=== PATIENT | male | born 1965 | race Caucasian/White ===

== ENCOUNTER 2020-08-19 17:02 | Emergency (ER) | payer MEDICAID, MEDICARE, OTHER ==
[2020-08-19 17:17] LABS: #Basophils 0.2 thou/uL (0.0-0.2); #Eosinphils 0.2 thou/uL (0.0-0.7); #Lymphocytes 1.3 thou/uL (1.20-3.40); #Monocytes 0.8 thou/uL (0.11-0.59); #Neutrophils 13.8 thou/uL (1.40-6.50); %Basophils 1.2 % (0.0-1.0); %Eosinophils 1.5 % (0.0-10.0); %Lymphocytes 7.7 % (21.0-51.0); %Neutrophils 84.6 % (42.0-75.0); Hemoglobin 14.2 g/dL (14.0-18.0); Mean Corpuscular HGB CONC 31.1 g/dL (32.0-36.0); Mean Corpuscular Hemoglobin 28.2 pg (27.0-31.0); Mean Corpuscular Volume 90.7 fL (78.0-98.0); Mean Platelet Volume 8.2 fL (7.4-10.4); Platelet Count 400 thou/uL (130-400); RBC Distribution Width 13.6 % (11.5-14.5); Red Blood Cell (RBC) Count 5.02 mill/uL (4.70-6.10); White Blood Cell (WBC) Count 16.3 thou/uL (4.8-10.8)
[2020-08-19 17:19] LABS: INR-International Normal Ratio 1.1; PTT 37.4 sec (22.9-36.1); Prothrombin Time 14.2 sec (12.0-14.7)
[2020-08-19] MEDS ORDERED: methylPREDNISolone Sod Succ/PF 125 MG/2 ML VIAL ONE (17:27)
[2020-08-19] MEDS ORDERED: Magnesium 2 GM/50 ML BAG (IN WATER) ONE (17:27)
[2020-08-19 17:32] LABS: ALT (SGPT) 24 U/L (8-55); AST (SGOT) 23 U/L (5-34); Albumin 3.8 g/dL (3.5-5.0); Alkaline Phosphatase 123 U/L (40-110); Anion Gap 15 mmol/L (10-20); BUN (Urea Nitrogen) 15 mg/dL (8.4-25.7); Bilirubin, Total 0.4 mg/dL (0.2-1.2); CK (CPK) 120 U/L (30-200); Calc. Creatinine Clearance 0 mL/min (70-130); Calcium 8.7 mg/dL (7.8-10.44); Carbon Dioxide 34 mmol/L (22-29); Chloride 94 mmol/L (98-107); Globulin 3.4 g/dL (2.4-3.5); Glucose 258 mg/dL (70-105); Lipase 35 U/L (8-78); Protein, Total 7.2 g/dL (6.0-8.3); Sodium 137 mmol/L (136-145)
[2020-08-19 17:37] LABS: Bilirubin Negative (Negative); Blood, Urine Moderate (Negative); Glucose, Urine (Dipstick) Negative (Negative); Ketone, Urine Negative (Negative); Leukocyte Negative (Negative); Nitrite Negative (Negative); Protein, Urine (Dipstick) > or equal to 300 mg/dL (Neg-Trace)
[2020-08-19 17:39] LABS: Clarity Cloudy (Clear); Specific Gravity, Urine 1.019 (1.002-1.036)
[2020-08-19] MEDS ORDERED: cefTRIAXone\\ROCEPHIN 1 GM VIAL ONE (17:42)
[2020-08-19] MEDS ORDERED: Sodium Chloride 0.9% 100 ML ONE (17:42)
[2020-08-19 17:45] LABS: Bacteria/HPF Rare-Few HPF (None Seen); Sperm/HPF 2+ HPF (None Seen); Squamous Epithelial 0-3 HPF (0-3); WBC/HPF None Seen HPF (0-3)
[2020-08-19] MEDS ORDERED: Insulin Regular 300 UNITS/3 ML VIAL ONE (17:52)
[2020-08-19] MEDS ORDERED: Dextrose 50% Abboject 50 ML SYRINGE ONE (17:53)
--- NOTE | 2020-08-19 17:56 | RAD ---
PORTABLE CHEST: 08/19/20 HISTORY: Endotracheal tube placement. Heart size within normal limits. The costophrenic angles are not included on this exam. The endotrach eal tube is in satisfactory position. NG tube is present. The distal end of this tube is not well vis ualized on this exam. IMPRESSION: Endotracheal tube in satisfactory position. The tip of the NG tube could not be definitively visualiz ed. POS: OFF
[2020-08-19 18:24] LABS: SARS-CoV-2 NAA Rapid Test Not Detected (NotDetected)
== END 2020-08-19 17:57 | disposition short-term general hospital (02) ==
LOC: MADERS 17:02
DX: J96.91 Respiratory failure, unspecified with hypoxia (principal); E87.5 Hyperkalemia; Z20.822 Contact with and (suspected) exposure to COVID-19; R60.0 Localized edema; Z79.899 Other long term (current) drug therapy; Z79.51 Long term (current) use of inhaled steroids
CPT/HCPCS: 0240U; 71045; 80053; 82550; 83605; 83690; 84484; 85025; 85610; 85730; 87040; 93005; 94760; 31500; 51702; 81003; 81015; 96365; 96375; J0696; J1815; J2930; J3475; J3490; J7620